=== PATIENT | female | born 1995 | race Caucasian/White ===

== ENCOUNTER 2016-05-19 13:59 | Emergency (ER) | payer OTHER ==
[~2016-05-19 13:59] MED LIST: ACET50TA PO; ADDE10CA PO; IBUP60TA PO; LEXA1TAB2 PO; NEUR300C PO; NEUR800T PO; PRENATAL VITAMIN PO; TRAZ100T4 PO; TRAZ50TA4 PO; UNIS50CA PO
[2016-05-19 15:40] LABS: BASO % 0.5 % (0.0-1.0); EOS # 0.2 K/mm3 (0.0-0.50); LARGE UNSTAINED CELL # 0.1 K/mm3 (0.0-0.4); LARGE UNSTAINED CELL % 1.4 % (0.0-4.0); LYMPH # 2.1 K/mm3 (1.5-6.5); LYMPH % 27.8 % (24.0-44.0); MEAN CORPUSCULAR HEMOGLOBIN 27.1 pg (27.0-33.0); MEAN CORPUSCULAR HGB CONC 31.2 g/dl (32.0-36.5); MEAN CORPUSCULAR VOLUME 86.7 fl (80.0-96.0); MONO # 0.4 K/mm3 (0.0-0.8); MONO % 5.2 % (0.0-5.0); NEUTROPHILS # 4.6 K/mm3 (1.8-7.7); PLATELET COUNT, AUTOMATED 308 k/mm3 (150-450); WHITE BLOOD COUNT 7.3 K/mm3 (4.0-10.0)
[2016-05-19 15:56] LABS: ANION GAP 4 MEQ/L (8-16); BLOOD UREA NITROGEN 11 MG/DL (7-18); CALCIUM LEVEL 8.9 MG/DL (8.5-10.1); CARBON DIOXIDE LEVEL 29 MEQ/L (21-32); CHLORIDE LEVEL 110 MEQ/L (98-107); CREATININE FOR GFR 0.82 MG/DL (0.55-1.02); GLUCOSE, FASTING 80 MG/DL (70-105); POTASSIUM SERUM 3.6 MEQ/L (3.5-5.1); SODIUM LEVEL 143 MEQ/L (136-145)
--- NOTE | 2016-05-19 16:59 | EDDOCDS ---
Nurse's Notes [facility] Name: Cherelle King Age: 20 yrs Sex: Female : 1995 Arrival Date: 05/19/2016 Time: 13:59 Bed I1 / M1 Private MD: Sravan [facility] [place] Diagnosis: Syncope and collapse-positional, borderline orthostatic Presentation: 05/19 14:12 Presenting complaint: Patient states: lightheaded and passed out twice this morning. rs3 denies of any acute illness. denies exposure to sick contacts. not sure whether . Adult Sepsis Screening: The patient does not have new or worsening altered mentation. Patient's respiratory rate is less than 22. Adult Sepsis Screening: Systolic blood pressure is greater than 100. Patient has a qSOFA score of 0- Negative Sepsis Screen. Suicide/Homicide risk assessment- the patient denies having any suicidal and/or homicidal ideations and does not present with any other emotional, behavioral or mental health complaints. Status: The patient is a dependent. Transition of care: patient was not received from another setting of care. 14:12 Acuity: MEHRAN Level 4 rs3 14:12 Method Of Arrival: Walkin/Carried/Asstd rs3 Triage Assessment: 14:14 General: Appears in no apparent distress. Pain: Denies pain. HIV screening NA for this rs3 visit Offered previously. CHECK EMBOSSER: 14:14 LMP 04/05/2016 rs3 Historical: - Allergies: no known allergies; - Home Meds: 1. Neurontin 900mg in AM and noon, 1200mg in PM Oral - PMHx: Anxiety; Fibromyalgia; Seizures; - PSHx: none; - Social history: Smoking status: Patient states was never smoker of tobacco. No barriers to communication noted, The patient speaks fluent Kazakh. - Family history: Not pertinent. - : The pt / caregiver states he / she is not on anticoagulants. Home medication list is obtained from the patient. - Exposure Risk Screening:: None identified. Screenin:36 Screening information is obtained from the patient. Fall risk: No risks identified. mk4 Assistance ADL's: requires no assistance with activities of daily living. Abuse/DV Screen: The patient / caregiver reports he/she is: not in a situation that causes fear, pain or injury. Nutritional screening: No deficits noted. Advance Directives: Currently, there is no health care proxy. There is no active DNR order. There is no living will. There is no Power of Montessori Paraprofessional. Advance directive information has not previously been placed in an [facility] medical record. Further advance directive information is declined. home support is adequate. Assessment: 15:36 General: Appears in no apparent distress, comfortable. Pain: Denies pain. Neurological: mk4 Level of Consciousness is awake, alert, Oriented to person, place, time, Denies weakness blurred vision dizziness, headache Reports a syncopal episode this am that came on suddenly after a dizzy spell. Respiratory: Airway is patent Respiratory effort is even, unlabored. Derm: Skin is intact, is healthy with good turgor, Skin is pink, warm & dry. 15:39 Neurological: Speech is normal, Facial symmetry appears normal, Pupils are PERRLA. mk4 16:56 General: Appears in no apparent distress, comfortable. mk4 16:56 Reassessment: Patient states feeling better. Patient states symptoms have improved. mk4 General: Appears in no apparent distress, comfortable. Vital Signs: 14:01 BP 104 / 60; Pulse 78; Resp 16; Temp 98.2(O); Pulse Ox 97% on R/A; Weight 95.25 kg (R); lr2 Height 5 ft. 6 in. (167.64 cm) (R); 15:37 BP 114 / 59 RA Supine; Pulse 80; mk4 15:38 BP 101 / 58 Sitting; Pulse 92; mk4 15:38 BP 99 / 64 Standing; Pulse 100 RA; mk4 16:17 Resp 20; Temp 96.4; Pulse Ox 96% on R/A; jml1 16:49 BP 103 / 52; Pulse 77; Resp 18; jml1 14:01 Body Mass Index 33.89 (95.25 kg, 167.64 cm) lr2 Vitals: 14:01 Log In Time: May 19, 2016 at 13:59. lr2 ED Course: 14:00 Patient visited by Melania Echevarria. lr2 14:00 Sravan [facility] is Private Physician. lr2 14:00 Patient moved to Waiting lr2 14:00 Patient moved to Pre RCE lr2 14:14 Triage Initiated rs3 14:22 Patient moved to Triage 2 jb5 14:35 Patient visited by Venice Berry PCA. jb5 14:41 Demetri[facility]. ar2 14:42 Herberth Abarca MD is Attending Physician. ar2 14:42 Patient visited by Demetrius Arechiga PA-C. ar2 15:05 Patient moved to I1 / M1 jb5 15:23 Patient visited by Catrina Pritchett RN. mk4 15:23 MED Profile Sent. mk4 15:23 CBC with Diff Sent. mk4 15:25 Patient visited by Lakhwinder Suggs. jml1 15:25 EKG done. (by ED staff). Reviewed by Demetrius Arechiga PA-C. jml1 15:36 The patient / caregiver is instructed regarding the plan of care and ED course. mk4 15:36 Inserted saline lock: 20 gauge in right antecubital area and blood collected. mk4 15:36 No procedures done that require assistance. mk4 16:05 Patient visited by Catrina Pritchett RN. mk4 16:09 Sravan [facility] is Referral Physician. ar2 16:20 Patient visited by Lakhwinder Suggs. jml1 16:49 Patient visited by Lakhwinder Suggs. jml1 16:57 Discontinued IV lock intact, bleeding controlled. mk4 Administered Medications: 15:35 Drug: NS 0.9% 1000 ml [sodium chloride 0.9 % intravenous solution] Route: IV; Rate: mk4 bolus; Site: right antecubital; Point of Care Testing: Blood Glucose: 15:39 Blood Glucose: 92 mg/dL; mk4 Urine : 15:10 hCG Reading: Negative; Control Reading: Positive; ck1 Ranges: Order Results: Lab Order: CBC with Diff; SPEC'M 05/19/16 15:11 Test: WHITE BLOOD COUNT; Value: 7.3; Range: 4.0-10.0; Units: K/mm3; Status: F Test: RED BLOOD COUNT; Value: 4.62; Range: 4.00-5.40; Units: M/mm3; Status: F Test: HEMOGLOBIN; Value: 12.5; Range: 12.0-16.0; Units: g/dl; Status: F Test: HEMATOCRIT; Value: 40.1; Range: 36.0-47.0; Units: %; Status: F Test: MEAN CORPUSCULAR VOLUME; Value: 86.7; Range: 80.0-96.0; Units: fl; Status: F Test: MEAN CORPUSCULAR HEMOGLOBIN; Value: 27.1; Range: 27.0-33.0; Units: pg; Status: F Test: MEAN CORPUSCULAR HGB CONC; Value: 31.2; Range: 32.0-36.5; Abnormal: Below low normal; Units: g/dl; Status: F Test: RED CELL DISTRIBUTION WIDTH; Value: 14.0; Range: 11.5-14.5; Units: %; Status: F Test: PLATELET COUNT, AUTOMATED; Value: 308; Range: 150-450; Units: k/mm3; Status: F Test: NEUTROPHILS %; Value: 63.0; Range: 36.0-66.0; Units: %; Status: F Test: LYMPH %; Value: 27.8; Range: 24.0-44.0; Units: %; Status: F Test: MONO %; Value: 5.2; Range: 0.0-5.0; Abnormal: Above high normal; Units: %; Status: F Test: EOS %; Value: 2.0; Range: 0.0-3.0; Units: %; Status: F Test: BASO %; Value: 0.5; Range: 0.0-1.0; Units: %; Status: F Test: LARGE UNSTAINED CELL %; Value: 1.4; Range: 0.0-4.0; Units: %; Status: F Test: NEUTROPHILS #; Value: 4.6; Range: 1.8-7.7; Units: K/mm3; Status: F Test: LYMPH #; Value: 2.1; Range: 1.5-6.5; Units: K/mm3; Status: F Test: MONO #; Value: 0.4; Range: 0.0-0.8; Units: K/mm3; Status: F Test: EOS #; Value: 0.2; Range: 0.0-0.50; Units: K/mm3; Status: F Test: BASO #; Value: 0.0; Range: 0.0-0.2; Units: K/mm3; Status: F Test: LARGE UNSTAINED CELL #; Value: 0.1; Range: 0.0-0.4; Units: K/mm3; Status: F Lab Order: MED Profile; SPEC'M 05/19/16 15:11 Test: GLUCOSE, FASTING; Value: 80; Range: 70-105; Units: MG/DL; Status: F Test: BLOOD UREA NITROGEN; Value: 11; Range: 7-18; Units: MG/DL; Status: F Test: CREATININE FOR GFR; Value: 0.82; Range: 0.55-1.02; Units: MG/DL; Status: F Test: SODIUM LEVEL; Value: 143; Range: 136-145; Units: MEQ/L; Status: F Test: POTASSIUM SERUM; Value: 3.6; Range: 3.5-5.1; Units: MEQ/L; Status: F Test: CHLORIDE LEVEL; Value: 110; Range: 98-107; Abnormal: Above high normal; Units: MEQ/L; Status: F Test: CARBON DIOXIDE LEVEL; Value: 29; Range: 21-32; Units: MEQ/L; Status: F Test: ANION GAP; Value: 4; Range: 8-16; Abnormal: Below low normal; Units: MEQ/L; Status: F Test: CALCIUM LEVEL; Value: 8.9; Range: 8.5-10.1; Units: MG/DL; Status: F Lab Order: Fingerstick Blood Sugar; SPEC'M 05/19/16 15:30 Test: BEDSIDE GLUCOSE; Value: 92; Range: 70-105; Units: MG/DL; Status: F Outcome: 16:09 Discharge ordered by Provider. ar2 16:56 Discharge Assessment: Patient awake, alert and oriented x 3. No cognitive and/or mk4 functional deficits noted. Patient verbalized understanding of disposition instructions. Patient awake and alert. patient administered narcotics - no. The following High Risk Discharge criteria are identified: None. Discharged to home ambulatory. Condition: good Condition: stable. No special radiology studies were completed. Property sent home with patient. 16:58 Patient left the ED. mk4 Signatures: Ramya Orr,RN RN ck1 Venice Berry, MENA HAT BLOCK MAKER jb5 Demetrius Arechiga PA-C PACherelleC ar2 Soco Charles RN RN rs3 Lakhwinder Suggs jml1 Catrina Pritchett RN RN mk4 Ross, Melania lr2 MTDD
--- NOTE | 2016-05-19 16:59 | EDDOCDS ---
Physician Documentation [facility] Name: Cherelle King Age: 20 yrs Sex: Female : 1995 Arrival Date: 05/19/2016 Time: 13:59 Bed I1 / M1 Private MD: APRIL Hinson Disposition: 05/19/16 16:09 Discharged to Home/Self Care. Impression: Syncope and collapse - positional, borderline orthostatic. - Condition is Stable. - Discharge Instructions: Orthostatic Hypotension, Syncope. - Prescriptions for Neurontin 300 mg Oral Capsule - take 1 capsule by ORAL route as directed 3 tablets in am 4 tablets qhs; 49 capsule. - Medication Reconciliation, Local Pharmacy Hours form. - Follow up: APRIL Hinson; When: Call to arrange an appointment; Reason: Recheck today's complaints, Continuance of care. Follow up: Emergency Department; When: As needed; Reason: If symptoms return, Worsening of conditions. - Problem is new. - Symptoms have improved. Historical: - Allergies: no known allergies; - Home Meds: 1. Neurontin 900mg in AM and noon, 1200mg in PM Oral - PMHx: Anxiety; Fibromyalgia; Seizures; - PSHx: none; - Social history: Smoking status: Patient states was never smoker of tobacco. No barriers to communication noted, The patient speaks fluent Comoran. - Family history: Not pertinent. - : The pt / caregiver states he / she is not on anticoagulants. Home medication list is obtained from the patient. - Exposure Risk Screening:: None identified. PROJECT CONTROL ANALYST: 05/19 14:14 LMP 04/05/2016 rs3 Vital Signs: 14:01 BP 104 / 60; Pulse 78; Resp 16; Temp 98.2(O); Pulse Ox 97% on R/A; Weight 95.25 kg / lr2 209.99 lbs (R); Height 5 ft. 6 in. (167.64 cm) (R); 15:37 BP 114 / 59 RA Supine; Pulse 80; mk4 15:38 BP 101 / 58 Sitting; Pulse 92; mk4 15:38 BP 99 / 64 Standing; Pulse 100 RA; mk4 16:17 Resp 20; Temp 96.4; Pulse Ox 96% on R/A; jml1 16:49 BP 103 / 52; Pulse 77; Resp 18; jml1 14:01 Body Mass Index 33.89 (95.25 kg, 167.64 cm) lr2 MDM: 15:01 Accucheck ordered. ar2 15:01 Orthostatic VS ordered. ar2 15:01 UCG by Nursing ordered. ar2 15:01 IV Saline Lock ordered. ar2 15:01 NS 0.9% 1000 ml IV at bolus once ordered. ar2 15:02 ECG WITH READING ER PHYS+CARDIAG ordered. EDMS 15:03 CBC with Diff Ordered. EDMS 15:03 MED Profile Ordered. EDMS 15:28 Financial registration complete. zo 15:43 Fingerstick Blood Sugar Ordered. EDMS 15:46 CBC with Diff Reviewed. ar2 15:46 Fingerstick Blood Sugar Reviewed. ar2 16:03 MED Profile Reviewed. ar2 Point of Care Testing: Blood Glucose: 15:39 Blood Glucose: 92 mg/dL; mk4 Urine : 15:10 hCG Reading: Negative; Control Reading: Positive; ck1 Ranges: Administered Medications: 15:35 Drug: NS 0.9% 1000 ml [sodium chloride 0.9 % intravenous solution] Route: IV; Rate: mk4 bolus; Site: right antecubital; Signatures: Dispatcher [employer] EDMS Caty Collins Aaron, PA-C PA-C ar2 Soco CharlesRN RN rs3 Catrina Pritchett RN RN mk4 MTDD
--- NOTE | 2016-05-20 19:45 | ECGEPIP ---
Stationary ECG Study [facility] - ED Test Date: 2016-05-19 Pat Name: JUDIT MANSFIELD Department: Room: - Gender: F Kettle Tender: MADI : 1995 Requested By: NENITA JOHN PA-C. Order Number: [id number] Reading MD: Elisha Gonzalez Measurements Intervals [place] Rate: 80 P: 18 ID: [id number] QRS: 61 QRSD: 81 T: 50 QT: 347 QTc: 402 Interpretive Statements SINUS RHYTHM WITH SINUS ARRHYTHMIA NO PRIOR FOR COMPARISON Electronically Signed On 05-20-2016 19:45:17 EST by Elisha Gonzalez
--- NOTE | 2016-05-21 17:59 | EDDOCDS ---
Physician Documentation [facility] Name: Cherelle King Age: 20 yrs Sex: Female : 1995 Arrival Date: 05/19/2016 Time: 13:59 Bed I1 / M1 Private MD: APRIL Hinson Disposition: 05/19/16 16:09 Discharged to Home/Self Care. Impression: Syncope and collapse - positional, borderline orthostatic. - Condition is Stable. - Discharge Instructions: Orthostatic Hypotension, Syncope. - Prescriptions for Neurontin 300 mg Oral Capsule - take 1 capsule by ORAL route as directed 3 tablets in am 4 tablets qhs; 49 capsule. - Medication Reconciliation, Local Pharmacy Hours form. - Follow up: APRIL Hinson; When: Call to arrange an appointment; Reason: Recheck today's complaints, Continuance of care. Follow up: Emergency Department; When: As needed; Reason: If symptoms return, Worsening of conditions. - Problem is new. - Symptoms have improved. Historical: - Allergies: no known allergies; - Home Meds: 1. Neurontin 900mg in AM and noon, 1200mg in PM Oral - PMHx: Anxiety; Fibromyalgia; Seizures; - PSHx: none; - Social history: Smoking status: Patient states was never smoker of tobacco. No barriers to communication noted, The patient speaks fluent Moldovan. - Family history: Not pertinent. - : The pt / caregiver states he / she is not on anticoagulants. Home medication list is obtained from the patient. - Exposure Risk Screening:: None identified. APRON TRIMMER: 05/19 14:14 LMP 04/05/2016 rs3 Vital Signs: 14:01 BP 104 / 60; Pulse 78; Resp 16; Temp 98.2(O); Pulse Ox 97% on R/A; Weight 95.25 kg / lr2 209.99 lbs (R); Height 5 ft. 6 in. (167.64 cm) (R); 15:37 BP 114 / 59 RA Supine; Pulse 80; mk4 15:38 BP 101 / 58 Sitting; Pulse 92; mk4 15:38 BP 99 / 64 Standing; Pulse 100 RA; mk4 16:17 Resp 20; Temp 96.4; Pulse Ox 96% on R/A; jml1 16:49 BP 103 / 52; Pulse 77; Resp 18; jml1 14:01 Body Mass Index 33.89 (95.25 kg, 167.64 cm) lr2 MDM: 15:01 Accucheck ordered. ar2 15:01 Orthostatic VS ordered. ar2 15:01 UCG by Nursing ordered. ar2 15:01 IV Saline Lock ordered. ar2 15:01 NS 0.9% 1000 ml IV at bolus once ordered. ar2 15:02 ECG WITH READING ER PHYS+CARDIAG ordered. EDMS 15:03 CBC with Diff Ordered. EDMS 15:03 MED Profile Ordered. EDMS 15:28 Financial registration complete. zo 15:43 Fingerstick Blood Sugar Ordered. EDMS 15:46 CBC with Diff Reviewed. ar2 15:46 Fingerstick Blood Sugar Reviewed. ar2 16:03 MED Profile Reviewed. ar2 19:16 [facility] Payment Agreement was scanned into [employer] and attached to record. hi05/20 10:20 T-Sheet-- Draft Copy was scanned into [employer] and attached to record. gb 10:20 ECG/EKG was scanned into [employer] and attached to record. gb Point of Care Testing: Blood Glucose: 05/19 15:39 Blood Glucose: 92 mg/dL; mk4 Urine : 15:10 hCG Reading: Negative; Control Reading: Positive; ck1 Ranges: Administered Medications: 15:35 Drug: NS 0.9% 1000 ml [sodium chloride 0.9 % intravenous solution] Route: IV; Rate: mk4 bolus; Site: right antecubital; Signatures: Dispatcher [employer] EDHI Vira Reynoso, Reg Reg gb Caty Collins Aaron, PA-C PA-C ar2 Soco Charles,RN RN rs3 Catrina Pritchett RN RN mk4 Landy Ryan, Reg Reg ks16 The chart was reviewed and I authenticate all verbal orders and agree with the evaluation and treatment provided.Attachments: : [facility] Payment Agreement 05/20 10:20 T-Sheet-- Draft Copy gb 10:20 ECG/EKG gb Chart Complete MTDD
--- NOTE | 2016-05-21 17:59 | EDDOCDS ---
Physician Documentation [facility] Name: Cherelle King Age: 20 yrs Sex: Female : 1995 Arrival Date: 05/19/2016 Time: 13:59 Bed I1 / M1 Private MD: APRIL Hinson Disposition: 05/19/16 16:09 Discharged to Home/Self Care. Impression: Syncope and collapse - positional, borderline orthostatic. - Condition is Stable. - Discharge Instructions: Orthostatic Hypotension, Syncope. - Prescriptions for Neurontin 300 mg Oral Capsule - take 1 capsule by ORAL route as directed 3 tablets in am 4 tablets qhs; 49 capsule. - Medication Reconciliation, Local Pharmacy Hours form. - Follow up: APRIL Hinson; When: Call to arrange an appointment; Reason: Recheck today's complaints, Continuance of care. Follow up: Emergency Department; When: As needed; Reason: If symptoms return, Worsening of conditions. - Problem is new. - Symptoms have improved. Historical: - Allergies: no known allergies; - Home Meds: 1. Neurontin 900mg in AM and noon, 1200mg in PM Oral - PMHx: Anxiety; Fibromyalgia; Seizures; - PSHx: none; - Social history: Smoking status: Patient states was never smoker of tobacco. No barriers to communication noted, The patient speaks fluent Romanian. - Family history: Not pertinent. - : The pt / caregiver states he / she is not on anticoagulants. Home medication list is obtained from the patient. - Exposure Risk Screening:: None identified. CREDIT CARD SPECIALIST: 05/19 14:14 LMP 04/05/2016 rs3 Vital Signs: 14:01 BP 104 / 60; Pulse 78; Resp 16; Temp 98.2(O); Pulse Ox 97% on R/A; Weight 95.25 kg / lr2 209.99 lbs (R); Height 5 ft. 6 in. (167.64 cm) (R); 15:37 BP 114 / 59 RA Supine; Pulse 80; mk4 15:38 BP 101 / 58 Sitting; Pulse 92; mk4 15:38 BP 99 / 64 Standing; Pulse 100 RA; mk4 16:17 Resp 20; Temp 96.4; Pulse Ox 96% on R/A; jml1 16:49 BP 103 / 52; Pulse 77; Resp 18; jml1 14:01 Body Mass Index 33.89 (95.25 kg, 167.64 cm) lr2 MDM: 15:01 Accucheck ordered. ar2 15:01 Orthostatic VS ordered. ar2 15:01 UCG by Nursing ordered. ar2 15:01 IV Saline Lock ordered. ar2 15:01 NS 0.9% 1000 ml IV at bolus once ordered. ar2 15:02 ECG WITH READING ER PHYS+CARDIAG ordered. EDMS 15:03 CBC with Diff Ordered. EDMS 15:03 MED Profile Ordered. EDMS 15:28 Financial registration complete. zo 15:43 Fingerstick Blood Sugar Ordered. EDMS 15:46 CBC with Diff Reviewed. ar2 15:46 Fingerstick Blood Sugar Reviewed. ar2 16:03 MED Profile Reviewed. ar2 19:16 [facility] Payment Agreement was scanned into [employer] and attached to record. nj05/20 10:20 T-Sheet-- Draft Copy was scanned into [employer] and attached to record. gb 10:20 ECG/EKG was scanned into [employer] and attached to record. gb Point of Care Testing: Blood Glucose: 05/19 15:39 Blood Glucose: 92 mg/dL; mk4 Urine : 15:10 hCG Reading: Negative; Control Reading: Positive; ck1 Ranges: Administered Medications: 15:35 Drug: NS 0.9% 1000 ml [sodium chloride 0.9 % intravenous solution] Route: IV; Rate: mk4 bolus; Site: right antecubital; Signatures: Dispatcher [employer] EDIN Vira Reynoso, Reg Reg gb Caty Collins Aaron, PA-C PA-C ar2 Soco Charles,RN RN rs3 Catrina Pritchett RN RN mk4 Landy Ryan, Reg Reg ks16 The chart was reviewed and I authenticate all verbal orders and agree with the evaluation and treatment provided.Attachments: : [facility] Payment Agreement 05/20 10:20 T-Sheet-- Draft Copy gb 10:20 ECG/EKG gb Chart Complete MTDD
--- NOTE | 2016-05-21 17:59 | EDDOCDS ---
Nurse's Notes [facility] Name: Judit Mansfield Age: 20 yrs Sex: Female : 1995 Arrival Date: 05/19/2016 Time: 13:59 Bed I1 / M1 Private MD: Sravan [facility] [place] Diagnosis: Syncope and collapse-positional, borderline orthostatic Presentation: 05/19 14:12 Presenting complaint: Patient states: lightheaded and passed out twice this morning. rs3 denies of any acute illness. denies exposure to sick contacts. not sure whether . Adult Sepsis Screening: The patient does not have new or worsening altered mentation. Patient's respiratory rate is less than 22. Adult Sepsis Screening: Systolic blood pressure is greater than 100. Patient has a qSOFA score of 0- Negative Sepsis Screen. Suicide/Homicide risk assessment- the patient denies having any suicidal and/or homicidal ideations and does not present with any other emotional, behavioral or mental health complaints. Status: The patient is a dependent. Transition of care: patient was not received from another setting of care. 14:12 Acuity: MEHRAN Level 4 rs3 14:12 Method Of Arrival: Walkin/Carried/Asstd rs3 Triage Assessment: 14:14 General: Appears in no apparent distress. Pain: Denies pain. HIV screening NA for this rs3 visit Offered previously. 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 Neurontin 900mg in AM and noon, 1200mg in PM Oral - PMHx: Anxiety; Fibromyalgia; Seizures; - PSHx: none; - Social history: Smoking status: Patient states was never smoker of tobacco. No barriers to communication noted, The patient speaks fluent Romansh. - Family history: Not pertinent. - : The pt / caregiver states he / she is not on anticoagulants. Home medication list is obtained from the patient. - Exposure Risk Screening:: None identified. Screenin:36 Screening information is obtained from the patient. Fall risk: No risks identified. mk4 Assistance ADL's: requires no assistance with activities of daily living. Abuse/DV Screen: The patient / caregiver reports he/she is: not in a situation that causes fear, pain or injury. Nutritional screening: No deficits noted. Advance Directives: Currently, there is no health care proxy. There is no active DNR order. There is no living will. There is no Power of Principal Security Architect. Advance directive information has not previously been placed in an [facility] medical record. Further advance directive information is declined. home support is adequate. Assessment: 15:36 General: Appears in no apparent distress, comfortable. Pain: Denies pain. Neurological: mk4 Level of Consciousness is awake, alert, Oriented to person, place, time, Denies weakness blurred vision dizziness, headache Reports a syncopal episode this am that came on suddenly after a dizzy spell. Respiratory: Airway is patent Respiratory effort is even, unlabored. Derm: Skin is intact, is healthy with good turgor, Skin is pink, warm & dry. 15:39 Neurological: Speech is normal, Facial symmetry appears normal, Pupils are PERRLA. mk4 16:56 General: Appears in no apparent distress, comfortable. mk4 16:56 Reassessment: Patient states feeling better. Patient states symptoms have improved. mk4 General: Appears in no apparent distress, comfortable. Vital Signs: 14:01 BP 104 / 60; Pulse 78; Resp 16; Temp 98.2(O); Pulse Ox 97% on R/A; Weight 95.25 kg (R); lr2 Height 5 ft. 6 in. (167.64 cm) (R); 15:37 BP 114 / 59 RA Supine; Pulse 80; mk4 15:38 BP 101 / 58 Sitting; Pulse 92; mk4 15:38 BP 99 / 64 Standing; Pulse 100 RA; mk4 16:17 Resp 20; Temp 96.4; Pulse Ox 96% on R/A; jml1 16:49 BP 103 / 52; Pulse 77; Resp 18; jml1 14:01 Body Mass Index 33.89 (95.25 kg, 167.64 cm) lr2 Vitals: 14:01 Log In Time: May 19, 2016 at 13:59. lr2 ED Course: 14:00 Patient visited by Melania Echevarria. lr2 14:00 Sravan [facility] is Private Physician. lr2 14:00 Patient moved to Waiting lr2 14:00 Patient moved to Pre RCE lr2 14:14 Triage Initiated rs3 14:22 Patient moved to Triage 2 jb5 14:35 Patient visited by Venice Berry PCA. jb5 14:41 Demetrius John PA-C is PHCP. ar2 14:42 Herberth Abarca MD is Attending Physician. ar2 14:42 Patient visited by Demetrius John PA-C. ar2 15:05 Patient moved to I1 / M1 jb5 15:23 Patient visited by Catrina Pritchett RN. mk4 15:23 MED Profile Sent. mk4 15:23 CBC with Diff Sent. mk4 15:25 Patient visited by Lakhwinder Suggs. jml1 15:25 EKG done. (by ED staff). Reviewed by Demetrius John PA-C. jml1 15:36 The patient / caregiver is instructed regarding the plan of care and ED course. mk4 15:36 Inserted saline lock: 20 gauge in right antecubital area and blood collected. mk4 15:36 No procedures done that require assistance. mk4 16:05 Patient visited by Catrina Pritchett RN. mk4 16:09 Sravan [facility] is Referral Physician. ar2 16:20 Patient visited by Lakhwinder Suggs. jml1 16:49 Patient visited by Lakhwinder Suggs. jml1 16:57 Discontinued IV lock intact, bleeding controlled. mk4 19:16 [facility] Payment Agreement was scanned into [employer] and attached to record. ks16 05/20 10:20 T-Sheet-- Draft Copy was scanned into [employer] and attached to record. gb 10:20 ECG/EKG was scanned into [employer] and attached to record. gb 20:02 EKG-ADULT Returned. EDMS Administered Medications: 05/19 15:35 Drug: NS 0.9% 1000 ml [sodium chloride 0.9 % intravenous solution] Route: IV; Rate: mk4 bolus; Site: right antecubital; Point of Care Testing: Blood Glucose: 15:39 Blood Glucose: 92 mg/dL; mk4 Urine : 15:10 hCG Reading: Negative; Control Reading: Positive; ck1 Ranges: Order Results: Lab Order: CBC with Diff; SPEC'M 05/19/16 15:11 Test: WHITE BLOOD COUNT; Value: 7.3; Range: 4.0-10.0; Units: K/mm3; Status: F Test: RED BLOOD COUNT; Value: 4.62; Range: 4.00-5.40; Units: M/mm3; Status: F Test: HEMOGLOBIN; Value: 12.5; Range: 12.0-16.0; Units: g/dl; Status: F Test: HEMATOCRIT; Value: 40.1; Range: 36.0-47.0; Units: %; Status: F Test: MEAN CORPUSCULAR VOLUME; Value: 86.7; Range: 80.0-96.0; Units: fl; Status: F Test: MEAN CORPUSCULAR HEMOGLOBIN; Value: 27.1; Range: 27.0-33.0; Units: pg; Status: F Test: MEAN CORPUSCULAR HGB CONC; Value: 31.2; Range: 32.0-36.5; Abnormal: Below low normal; Units: g/dl; Status: F Test: RED CELL DISTRIBUTION WIDTH; Value: 14.0; Range: 11.5-14.5; Units: %; Status: F Test: PLATELET COUNT, AUTOMATED; Value: 308; Range: 150-450; Units: k/mm3; Status: F Test: NEUTROPHILS %; Value: 63.0; Range: 36.0-66.0; Units: %; Status: F Test: LYMPH %; Value: 27.8; Range: 24.0-44.0; Units: %; Status: F Test: MONO %; Value: 5.2; Range: 0.0-5.0; Abnormal: Above high normal; Units: %; Status: F Test: EOS %; Value: 2.0; Range: 0.0-3.0; Units: %; Status: F Test: BASO %; Value: 0.5; Range: 0.0-1.0; Units: %; Status: F Test: LARGE UNSTAINED CELL %; Value: 1.4; Range: 0.0-4.0; Units: %; Status: F Test: NEUTROPHILS #; Value: 4.6; Range: 1.8-7.7; Units: K/mm3; Status: F Test: LYMPH #; Value: 2.1; Range: 1.5-6.5; Units: K/mm3; Status: F Test: MONO #; Value: 0.4; Range: 0.0-0.8; Units: K/mm3; Status: F Test: EOS #; Value: 0.2; Range: 0.0-0.50; Units: K/mm3; Status: F Test: BASO #; Value: 0.0; Range: 0.0-0.2; Units: K/mm3; Status: F Test: LARGE UNSTAINED CELL #; Value: 0.1; Range: 0.0-0.4; Units: K/mm3; Status: F Lab Order: MED Profile; SPEC' 05/19/16 15:11 Test: GLUCOSE, FASTING; Value: 80; Range: 70-105; Units: MG/DL; Status: F Test: BLOOD UREA NITROGEN; Value: 11; Range: 7-18; Units: MG/DL; Status: F Test: CREATININE FOR GFR; Value: 0.82; Range: 0.55-1.02; Units: MG/DL; Status: F Test: SODIUM LEVEL; Value: 143; Range: 136-145; Units: MEQ/L; Status: F Test: POTASSIUM SERUM; Value: 3.6; Range: 3.5-5.1; Units: MEQ/L; Status: F Test: CHLORIDE LEVEL; Value: 110; Range: 98-107; Abnormal: Above high normal; Units: MEQ/L; Status: F Test: CARBON DIOXIDE LEVEL; Value: 29; Range: 21-32; Units: MEQ/L; Status: F Test: ANION GAP; Value: 4; Range: 8-16; Abnormal: Below low normal; Units: MEQ/L; Status: F Test: CALCIUM LEVEL; Value: 8.9; Range: 8.5-10.1; Units: MG/DL; Status: F Lab Order: Fingerstick Blood Sugar; SPEC' 05/19/16 15:30 Test: BEDSIDE GLUCOSE; Value: 92; Range: 70-105; Units: MG/DL; Status: F Radiology Order: EKG-ADULT Test: EKG-ADULT REASON FOR EXAMINATION: Syncope; Stationary ECG Study; [facility] - ED; ; Test Date: 2016-05-19; Pat Name: JUDIT MANSFIELD Department:; Room: -; Gender: F Indirect Fire Infantryman: MADI; : 1995 Requested By: DEMETRIUS JOHN PA-C.; Order Number: [id number] Reading MD: Elisha Gonzalez; Measurements; Intervals [place]; Rate: 80 P: 18; OH: 122 QRS: 61; QRSD: 81 T: 50; QT: 347; QTc: 402; Interpretive Statements; SINUS RHYTHM WITH SINUS ARRHYTHMIA; NO PRIOR FOR COMPARISON; Electronically Signed On 05-20-2016 19:45:17 EST by Elisha Gonzalez; Outcome: 16:09 Discharge ordered by Provider. ar2 16:56 Discharge Assessment: Patient awake, alert and oriented x 3. No cognitive and/or mk4 functional deficits noted. Patient verbalized understanding of disposition instructions. Patient awake and alert. patient administered narcotics - no. The following High Risk Discharge criteria are identified: None. Discharged to home ambulatory. Condition: good Condition: stable. No special radiology studies were completed. Property sent home with patient. 16:58 Patient left the ED. mk4 Signatures: Dispatcher [employer] EDMS Vira Reynoso, Reg Reg gb Ramya Orr,RN RN ck1 Venice Berry, FISH WARDEN FISH WARDEN jb5 Demetrius John, PA-C PA-C ar2 [place] RN RN rs3 Lakhwinder Suggs jml1 Catrina Pritchett RN RN mk4 Landy Ryan, Reg Reg ks16 Melania Echevarria lr2 Chart Complete MTDD
== END 2016-05-19 16:58 | disposition home or self-care (01) ==
LOC: M ED 13:59
DX: R55 Syncope and collapse (principal); F41.9 Anxiety disorder, unspecified; M79.7 Fibromyalgia; R56.9 Unspecified convulsions; Z79.899 Other long term (current) drug therapy

== ENCOUNTER 2017-01-16 12:29 | Emergency (ER) | payer OTHER ==
[~2017-01-16] VITALS: Ht 167.6 cm; Wt 81.8 kg
[~2017-01-16 12:29] MED LIST changes: -ADDE10CA PO; +ADDE10CA3 PO; +TRAZ-136 PO; -TRAZ100T4 PO; +TRAZ50TA11 PO; -TRAZ50TA4 PO
[2017-01-16] MEDS ORDERED: PROMETHAZINE INJ 25 MG/ML VIAL (J2550) IV ONE (13:30)
[2017-01-16] MEDS ORDERED: NS 1,000 ML IV ONE (13:30)
[2017-01-16 13:56] LABS: BASO % 0.3 % (0.0-1.0); EOS % 0.4 % (0.0-3.0); IMMATURE GRANULOCYTE % 0.3 % (0-0); LYMPH # 1.4 10^3/uL (1.5-6.5); LYMPH % 19.4 % (24.0-44.0); MEAN CORPUSCULAR HEMOGLOBIN 28.1 pg (27.0-33.0); MEAN CORPUSCULAR HGB CONC 32.5 g/dl (32.0-36.5); MEAN CORPUSCULAR VOLUME 86.4 fl (80.0-96.0); MONO # 0.4 10^3/uL (0.0-0.8); MONO % 5.9 % (0.0-5.0); NEUTROPHILS # 5.3 10^3/uL (1.8-7.7); NEUTROPHILS % 73.7 % (36.0-66.0); PLATELET COUNT, AUTOMATED 233 10^3/uL (150-450); RED CELL DISTRIBUTION WIDTH 14.4 % (11.5-14.5); WHITE BLOOD COUNT 7.1 10^3/uL (4.0-10.0)
[2017-01-16 14:56] LABS: ALBUMIN 3.6 GM/DL (3.2-5.2); ALKALINE PHOSPHATASE 88 U/L (45-117); ALT/SGPT 46 U/L (12-78); ANION GAP 10 MEQ/L (8-16); AST/SGOT 20 U/L (15-37); BILIRUBIN,DIRECT 0.2 MG/DL (0.0-0.2); BILIRUBIN,TOTAL 0.4 MG/DL (0.2-1.0); BLOOD UREA NITROGEN 9 MG/DL (7-18); CALCIUM LEVEL 8.5 MG/DL (8.5-10.1); CARBON DIOXIDE LEVEL 23 MEQ/L (21-32); CHLORIDE LEVEL 107 MEQ/L (98-107); CREATININE FOR GFR 0.55 MG/DL (0.55-1.02); GLOMERULAR FILTRATION RATE > 60.0 (>60); GLUCOSE, FASTING 78 MG/DL (70-105); POTASSIUM SERUM 3.9 MEQ/L (3.5-5.1); SODIUM LEVEL 140 MEQ/L (136-145); TOTAL PROTEIN 7.6 GM/DL (6.4-8.2)
[2017-01-16] MEDS ORDERED: PROM25SU PR (15:00)
[2017-01-16 15:30] VITALS: BP 136/79
== END 2017-01-16 15:32 | disposition home or self-care (01) ==
LOC: M ED 12:29
DX: O21.0 Mild hyperemesis gravidarum (principal); Z3A.08 8 weeks gestation of pregnancy

== ENCOUNTER → 2017-03-01 | Outpatient (CLI) | payer OTHER ==
[~2017-03-01] MED LIST changes: +PROM25SU PR
[2017-03-01 14:09] LABS: BASO % 0.2 % (0.0-1.0); EOS # 0.1 10^3/uL (0.0-0.50); EOS % 1.4 % (0.0-3.0); IMMATURE GRANULOCYTE % 0.5 % (0-0); LYMPH # 1.8 10^3/uL (1.5-6.5); LYMPH % 21.7 % (24.0-44.0); MEAN CORPUSCULAR HEMOGLOBIN 28.6 pg (27.0-33.0); MEAN CORPUSCULAR HGB CONC 32.4 g/dl (32.0-36.5); MEAN CORPUSCULAR VOLUME 88.4 fl (80.0-96.0); MONO # 0.5 10^3/uL (0.0-0.8); MONO % 6.1 % (0.0-5.0); NEUTROPHILS # 5.7 10^3/uL (1.8-7.7); NEUTROPHILS % 70.1 % (36.0-66.0); PLATELET COUNT, AUTOMATED 234 10^3/uL (150-450); RED CELL DISTRIBUTION WIDTH 14.6 % (11.5-14.5); WHITE BLOOD COUNT 8.1 10^3/uL (4.0-10.0)
[2017-03-01 14:50] LABS: HBsAg Prenatal NEGATIVE (NEGATIVE)
== END ==
LOC: M SMT 11:10
PROVIDERS: ATTEND Obstetrics & Gynecology
DX: Z34.82 Encounter for supervision of other normal pregnancy, second trimester (principal)

== ENCOUNTER → 2017-04-25 | Outpatient (CLI) | payer OTHER | LOC: M RAD 12:48 | DX: Z34.82 Encounter for supervision of other normal pregnancy, second trimester (principal) ==

== ENCOUNTER → 2017-05-29 | Outpatient (CLI) | payer OTHER | LOC: M SMT 14:29 | DX: Z34.82 Encounter for supervision of other normal pregnancy, second trimester (principal) ==

== ENCOUNTER → 2017-06-26 | Outpatient (CLI) | payer OTHER ==
[2017-06-26 14:03] LABS: HEMATOCRIT 30.7 % (36.0-47.0); HEMOGLOBIN 9.5 g/dl (12.0-16.0); MEAN CORPUSCULAR HEMOGLOBIN 26.5 pg (27.0-33.0); MEAN CORPUSCULAR HGB CONC 30.9 g/dl (32.0-36.5); MEAN CORPUSCULAR VOLUME 85.8 fl (80.0-96.0); PLATELET COUNT, AUTOMATED 253 10^3/uL (150-450); RED BLOOD COUNT 3.58 10^6/uL (4.00-5.40); RED CELL DISTRIBUTION WIDTH 13.7 % (11.5-14.5); WHITE BLOOD COUNT 10.3 10^3/uL (4.0-10.0)
[2017-06-26 14:37] LABS: GLUCOSE CHALLENGE TEST 1 HOUR 100 MG/DL (LESS THAN 140)
== END ==
LOC: M SMT 09:39
DX: Z36.89 Encounter for other specified antenatal screening (principal); Z3A.00 Weeks of gestation of pregnancy not specified
CPT/HCPCS: 82950

== ENCOUNTER → 2017-08-03 | Outpatient (REF) | payer OTHER | LOC: M LAB REF 17:37 | DX: Z34.83 Encounter for supervision of other normal pregnancy, third trimester (principal) ==